=== PATIENT | female | born 1975 | race Caucasian/White ===

== ENCOUNTER 2020-05-23 21:21 | Emergency (ER) | payer BC, OTHER ==
[~2020-05-23 21:21] MED LIST: LEXAPRO20 MG PO; MIRALAX17 GM PO; NAPROXEN 250 M250 MG PO; NORCO 7.5-3251 EACH PO; PRINIVIL10 MG PO; THERAGRAN M TAB1 EA PO; VISTARIL 50 MG50 MG PO
[2020-05-23 22:08] LABS: HEMOGLOBIN 12.4 gm/dl (12.3-15.3); RED BLOOD COUNT 4.13 M/UL (4.00-5.10); WHITE BLOOD COUNT 6.1 K/UL (4.5-11.0)
[2020-05-23 22:27] LABS: BUN/CREATININE RATIO 23 (0-10)
[2020-05-24] MEDS ORDERED: ZOFRAN ODT 4 MG4 MG PO (04:24)
[2020-05-24] MEDS ORDERED: K-DUR TAB 20 M20 MEQ PO (04:24)
[2020-05-24] MEDS ORDERED: DECADRON6 MG PO (04:24)
[2020-05-24] MEDS ORDERED: PROAIR HFA8.5 GM INH (04:24)
[2020-05-24] MEDS ORDERED: VIBRAMYCIN100 MG PO (04:24)
[2020-05-25] MEDS ORDERED: PROZAC 20 MG CA20 MG PO (16:20)
[2020-05-25] MEDS ORDERED: HYDROCHLOROTHIA25 MG PO (16:20)
[2020-05-25] MEDS ORDERED: GABAPENTIN300 MG PO (16:21)
== END 2020-05-24 05:30 | disposition home or self-care (01) ==
LOC: ER1 21:21
PROVIDERS: Emergency Medicine
DX: U07.1 COVID-19 (principal); J12.82 Pneumonia due to coronavirus disease 2019; R07.9 Chest pain, unspecified; E87.6 Hypokalemia; I10 Essential (primary) hypertension
CPT/HCPCS: 36600; 71045; 80053; 82550; 82553; 82803; 83605; 83690; 83735; 83874; 84484; 85025; 93005; J0696; J1100; J1885; J2405; J3480

== ENCOUNTER 2020-05-25 10:49 | Inpatient (IN) | payer BC, OTHER ==
[~2020-05-25] VITALS: Ht 165.1 cm; Wt 72.0 kg
[~2020-05-25 10:49] MED LIST changes: +DECADRON6 MG PO; +K-DUR TAB 20 M20 MEQ PO; +PROAIR HFA8.5 GM INH; +VIBRAMYCIN100 MG PO; +ZOFRAN ODT 4 MG4 MG PO
[2020-05-25 12:12] LABS: HEMOGLOBIN 11.7 gm/dl (12.3-15.3); RED BLOOD COUNT 3.96 M/UL (4.00-5.10); WHITE BLOOD COUNT 8.5 K/UL (4.5-11.0)
[2020-05-25 12:44] LABS: BUN/CREATININE RATIO 21 (0-10)
[2020-05-25] MEDS ORDERED: PROZAC 20 MG CA20 MG PO (16:20)
[2020-05-25] MEDS ORDERED: HYDROCHLOROTHIA25 MG PO (16:20)
[2020-05-25] MEDS ORDERED: GABAPENTIN300 MG PO (16:21)
[2020-05-26 04:12] LABS: HEMOGLOBIN 10.5 gm/dl (12.3-15.3); WHITE BLOOD COUNT 7.4 K/UL (4.5-11.0)
[2020-05-26 04:14] LABS: RED BLOOD COUNT 3.53 M/UL (4.00-5.10)
[2020-05-26 04:39] LABS: BUN/CREATININE RATIO 20 (0-10)
[2020-05-28 05:14] LABS: HEMOGLOBIN 10.6 gm/dl (12.3-15.3); RED BLOOD COUNT 3.6 M/UL (4.00-5.10); WHITE BLOOD COUNT 6.9 K/UL (4.5-11.0)
[2020-05-28 05:37] LABS: BUN/CREATININE RATIO 19 (0-10)
[2020-05-29 05:28] LABS: RED BLOOD COUNT 3.4 M/UL (4.00-5.10); WHITE BLOOD COUNT 6.1 K/UL (4.5-11.0)
[2020-05-29 05:47] LABS: BUN/CREATININE RATIO 20 (0-10)
--- NOTE | 2020-05-29 11:59 | NUR ---
MD ORDERED A 40 MEQ DOSE OF POTASSIUM AND THEN POTASSIUM RECHECK IN 2 HOURS.
[2020-05-30 06:45] LABS: HEMOGLOBIN 11.4 gm/dl (12.3-15.3)
[2020-05-30 06:46] LABS: RED BLOOD COUNT 3.86 M/UL (4.00-5.10); WHITE BLOOD COUNT 8.8 K/UL (4.5-11.0)
[2020-05-30 07:03] LABS: BUN/CREATININE RATIO 24 (0-10)
[2020-05-31 05:58] LABS: BUN/CREATININE RATIO 38 (0-10)
[2020-05-31] MEDS ORDERED: PHENERGAN6.25 MG/5 PO (11:18)
[2020-05-31] MEDS ORDERED: CEFUROXIME250 MG PO (11:18)
[2020-05-31] MEDS ORDERED: DECADRON6 MG PO (11:18)
== END 2020-05-31 13:10 | disposition home or self-care (01) | DRG 871 ==
LOC: ER1 10:49 → MED SURG 4 13:36 → CDU 13:36 → MED SURG 4 17:18
PROVIDERS: Internal Medicine; Physician Assistant; ADMIT Internal Medicine
PROC: 8E0ZXY6 Isolation (ICD-10-PCS; principal; 2020-05-25)
PROC: XW13325 Transfusion of Convalescent Plasma (Nonautologous) into Peripheral Vein, Percutaneous Approach, New Technology Group 5 (ICD-10-PCS; 2020-05-25)
PROC: XW033E5 Introduction of Remdesivir Anti-infective into Peripheral Vein, Percutaneous Approach, New Technology Group 5 (ICD-10-PCS; 2020-05-25)
DX: A41.9 Sepsis, unspecified organism (principal); U07.1 COVID-19; J12.82 Pneumonia due to coronavirus disease 2019; J96.01 Acute respiratory failure with hypoxia; J15.9 Unspecified bacterial pneumonia; R65.20 Severe sepsis without septic shock; R19.7 Diarrhea, unspecified; E87.6 Hypokalemia; I10 Essential (primary) hypertension; F32.9 Major depressive disorder, single episode, unspecified; F41.9 Anxiety disorder, unspecified; Z79.899 Other long term (current) drug therapy; Z90.710 Acquired absence of both cervix and uterus
CPT/HCPCS: 36415; 36600; 71045; 71046; 80048; 80053; 80202; 81001; 82550; 82553; 82803; 83605; 83690; 83735; 83874; 84132; 84484; 85025; 85027; 86900; 86901; 86927; 87040; 87086; 93005; 94640; 94760; 96365; 96366; 96367; 96374; 96375; 99285; J0692; J0696; J1100; J1650; J1885; J1940; J2270; J2405; J2543; J2550; J3370; J3480; J7030; J7070; U0002

== ENCOUNTER → 2020-06-16 | Outpatient (CLI) | payer BC, OTHER ==
[~2020-06-16] MED LIST changes: +CEFUROXIME250 MG PO; +GABAPENTIN300 MG PO; +HYDROCHLOROTHIA25 MG PO; +PHENERGAN6.25 MG/5 PO; +PROZAC 20 MG CA20 MG PO
== END ==
LOC: KOH-I 14:04
DX: J18.9 Pneumonia, unspecified organism (principal)
CPT/HCPCS: 71046